=== PATIENT | male | born 1995 | race Two or more races ===

== ENCOUNTER 2023-06-04 11:06 | Emergency (ER) | payer OTHER ==
[~2023-06-04] VITALS: Ht 180.3 cm; Wt 68.0 kg
[2023-06-04 12:16] VITALS: BP 131/86; PULSE 61; RESP 18; TEMP 98.6; O2SAT 100
== END 2023-06-04 13:20 | disposition left against medical advice (07) ==
LOC: ER 11:06 → EDBD 11:06 → ER 13:20
DX: M25.562 Pain in left knee (principal); M25.561 Pain in right knee; M25.511 Pain in right shoulder; Z53.21 Procedure and treatment not carried out due to patient leaving prior to being seen by health care provider

== ENCOUNTER 2024-01-03 21:24 | Emergency (ER) | payer OTHER ==
[~2024-01-03] VITALS: Ht 180.3 cm; Wt 70.3 kg
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
[2024-01-03] MEDS: KETOROLAC TROMETH 60MG/2ML VIAL IM ONE (22:00)
[2024-01-03] MEDS: HYDROcodone-ACET 10/325MG TAB PO ONE (23:08)
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
[2024-01-03] MEDS ORDERED: IBUP-1455 PO (23:34)
[2024-01-03] MEDS ORDERED: ZOFR4T PO (23:34)
[2024-01-03 23:35] VITALS: BP 99/51; PULSE 61; RESP 12; TEMP 98.3; O2SAT 100
== END 2024-01-04 00:03 | disposition home or self-care (01) ==
LOC: ER 21:24
DX: R51.9 Headache, unspecified (principal); H53.8 Other visual disturbances; V43.52XA Car driver injured in collision with other type car in traffic accident, initial encounter; Y93.89 Activity, other specified; Y92.488 Other paved roadways as the place of occurrence of the external cause; Y99.8 Other external cause status
CPT/HCPCS: 70450; 96372; 99285; J1885